=== PATIENT | female | born 1995 | race Caucasian/White ===

== ENCOUNTER 2016-04-20 02:34 | Emergency (ER) | payer SELFPAY ==
[~2016-04-20] VITALS: Ht 149.9 cm; Wt 54.5 kg
[2016-04-20 05:08] VITALS: BP 123/80
== END 2016-04-20 05:44 | disposition home or self-care (01) ==
LOC: EMS 02:37
DX: F12.929 Cannabis use, unspecified with intoxication, unspecified (principal)
CPT/HCPCS: 99283